=== PATIENT | male | born 1960 | race Caucasian/White ===

== ENCOUNTER 2022-08-07 13:15 | Inpatient (IN) | payer MEDICAID ==
[~2022-08-07] VITALS: Ht 182.9 cm; Wt 90.9 kg
[2022-08-07] MEDS ORDERED: acetaminophen 325mg tablet PO ONE (13:40)
[2022-08-07] MEDS ORDERED: ketorolac trometh. 30mg/ml inj. IV ONE (15:10)
[2022-08-07] MEDS ORDERED: ondansetron/PF 4mg/2ml inj IV ONE (15:10)
[2022-08-07] MEDS ORDERED: HYDROmorphone 1 mg/ml syringe IV ONE (15:10)
[2022-08-07 15:49] LABS: BASOPHILS % (AUTO) 0.2 % (0-1); EOSINOPHILS % (AUTO) 0 % (0-6); HEMATOCRIT 47.7 % (42.0-52.0); LYMPHOCYTES # (AUTO) 0.3 X10'3 (1.1-4.8); LYMPHOCYTES % (AUTO) 1.6 % (21-51); MEAN CORPUSCULAR HEMOGLOBIN 30.2 PG (27.0-31.0); MEAN CORPUSCULAR HGB CONC 33.6 g/dL (33.0-36.5); MEAN PLATELET VOLUME 7.4 FL (7.4-10.4); MONOCYTES # (AUTO) 0.9 X10'3 (0-0.9); MONOCYTES % (AUTO) 5.3 % (2-12); NEUTROPHILS # (AUTO) 16.2 X10'3 (1.8-7.7); NEUTROPHILS % (AUTO) 92.9 % (42-75); PLATELET COUNT 224 X10'3 (140-440); RED CELL DISTRIBUTION WIDTH 13.2 % (11.5-14.5); WHITE BLOOD COUNT 17.4 X10'3 (4.5-11.0)
[2022-08-07 16:05] LABS: ALANINE AMINOTRANSFERASE 20 U/L (12-78); ALBUMIN 3.8 G/DL (3.4-5.0); ALKALINE PHOSPHATASE 86 IU/L (46-116); ANION GAP 12 (8-16); ASPARTATE AMINO TRANSFERASE 24 U/L (10-37); BILIRUBIN,TOTAL 1.5 MG/DL (0.1-1.0); BLOOD UREA NITROGEN 19 MG/DL (7-18); BUN/CREATININE RATIO 11.7 (10.0-20.0); CALCIUM 8.9 MG/DL (8.5-10.1); CHLORIDE 96 MMOL/L (99-107); CREATININE 1.62 MG/DL (0.60-1.10); GLUCOSE 145 MG/DL (70-104); LIPASE < 50 U/L (73-393); POTASSIUM 4.3 MMOL/L (3.5-5.1); SODIUM 131 MMOL/L (135-145); TOTAL CARBON DIOXIDE 23.1 MMOL/L (24-32); TOTAL PROTEIN 7.6 G/DL (6.4-8.2); eGFR 44 ML/MIN
--- NOTE | 2022-08-07 16:22 | NUR ---
Received call from diagnostics, acute appendicitis noted. JOSE and notified.
[2022-08-07] MEDS ORDERED: piperacillin/tazo 3.375gm/50ml 50 ML IV ONE (16:40)
[2022-08-07 16:48] LABS: PLATELET ESTIMATE NORMAL; TOTAL CELLS COUNTED 100
[2022-08-07] MEDS ORDERED: potassium Cl 20 mEq SR tablet PO PRN ×2 (17:20)
[2022-08-07] MEDS ORDERED: ondansetron/PF 4mg/2ml inj IV PRN (17:20)
[2022-08-07] MEDS ORDERED: magnesium 4gm in 100ml NS 100 ML IV PRN (17:20)
[2022-08-07] MEDS ORDERED: magnesium Cl slow-release 64mg tablet PO PRN (17:20)
[2022-08-07] MEDS ORDERED: potassium Cl 40MEQ/1/2NS 520ml 520 ML IV PRN (17:20)
[2022-08-07] MEDS ORDERED: morphine 2 MG/ML inj. syringe IV PRN (17:20)
[2022-08-07] MEDS ORDERED: magnesium 2GM in 50ml NS 50 ML IV PRN (17:20)
[2022-08-07] MEDS ORDERED: acetaminophen 325mg tablet PO PRN (17:20)
[2022-08-07 17:54] LABS: CLARITY,URINE SLIGHTLY CLOUDY (Clear); COLOR,URINE YELLOW (Yellow); GLUCOSE, URINE NEGATIVE (Neg); KETONES,URINE 15 mg/dl (Neg); LEUKOCYTE ESTERASE ,URINE NEGATIVE (Neg); NITRITES, URINE NEGATIVE (Neg); OCCULT BLOOD,URINE NEGATIVE (Neg); PH,URINE 6.5 (4.8-8.0); PROTEIN,URINE NEGATIVE (Neg); UROBILINOGEN,URINE 0.2 E.U/dL (0.2-1.0)
[2022-08-07 17:59] LABS: UA COLLECTION TYPE CLN CATCH MIDSTREAM
[2022-08-07] MEDS: normal saline 1000ml 1,000 ML IV SCH (18:06)
[2022-08-07 18:14] LABS: HYALINE CASTS 0-3 /LPF (NEGATIVE); MUCUS STRANDS MANY /LPF (Neg); SQUAMOUS EPITHELIAL CELL,UR FEW /LPF (FEW)
[2022-08-07 18:15] LABS: BACTERIA,URINE FEW /HPF (Neg); RBC,URINE 0-2 /HPF (0-2); STARCH,URINE FEW /HPF (NEGATIVE); WBC,URINE 0-4 /HPF (0-4)
[2022-08-07] MEDS: enoxaparin 40mg/0.4ml syringe SQ SCH (19:25)
[2022-08-07] MEDS: morphine 2 MG/ML inj. syringe IV PRN (20:46)
[2022-08-08] VITALS (16 sets, daily range): BP systolic 133–165; BP diastolic 62–92
[2022-08-08] MEDS: piperacillin/tazo 3.375gm/50ml 50 ML IV SCH ×4 (00:25→23:39)
[2022-08-08] MEDS: morphine 2 MG/ML inj. syringe IV PRN ×4 (01:05→16:30)
[2022-08-08] MEDS ORDERED: OXYB5TAB16 PO (02:48)
[2022-08-08] MEDS ORDERED: HYDR-3927 PO (02:48)
[2022-08-08] MEDS ORDERED: NORT10CA81 PO (02:48)
[2022-08-08] MEDS ORDERED: TERA5CAP4 PO (02:48)
[2022-08-08] MEDS ORDERED: BUSP15TA3 PO (02:48)
[2022-08-08] MEDS: normal saline 1000ml 1,000 ML IV SCH ×3 (05:52→23:20)
--- NOTE | 2022-08-08 06:46 | NUR ---
EKG 3762
[2022-08-08] MEDS ORDERED: BUPIVAcaine/PF 2.5 mg/ml (0.25%) 30ml vial ONE (06:54)
[2022-08-08] MEDS ORDERED: fentaNYL /PF 50mcg/ml 5ml ampule ONE (08:12)
[2022-08-08] MEDS ORDERED: midazolam 1 mg/ML 2ml injection ONE (08:12)
[2022-08-08] MEDS ORDERED: esmolol 10mg/ml inj IV ONE (08:15)
[2022-08-08] MEDS ORDERED: neostigmine methylsulfate 1 MG/ML 10ml vial ONE (08:15)
[2022-08-08] MEDS ORDERED: sevoflurane 250ml liquid IH ONE (08:15)
[2022-08-08] MEDS ORDERED: glycopyrrolate 0.2mg/ml inj ONE (08:15)
[2022-08-08] MEDS ORDERED: ondansetron/PF 4mg/2ml inj IV PRN (08:20)
[2022-08-08] MEDS ORDERED: meperidine/PF 25mg/ml syringe IV PRN ×3 (08:20)
[2022-08-08] MEDS ORDERED: proCHLORperazine 10 MG/2 ml inj IV PRN (08:20)
[2022-08-08] MEDS ORDERED: morphine 2 MG/ML inj. syringe IV PRN (08:20)
[2022-08-08] MEDS ORDERED: morphine 4 MG/ML inj SYRINge IV PRN (08:20)
[2022-08-08] MEDS ORDERED: ringers solution, lacted 1,000 ML IV SCH (08:20)
[2022-08-08] MEDS ORDERED: dexamethasone sod phosphate 4mg/ml inj. ONE (09:36)
[2022-08-08] MEDS ORDERED: LIDOcaine 2% (20mg/ml) 5ml vial ONE (09:36)
[2022-08-08] MEDS ORDERED: rocuronium 10mg/ml inj IV ONE (09:36)
[2022-08-08] MEDS ORDERED: ondansetron/PF 4mg/2ml inj ONE (09:36)
[2022-08-08] MEDS ORDERED: propofol inj 20 ML IV ONE (09:36)
[2022-08-08] MEDS ORDERED: naloxone 0.4 mg/ml inj IV PRN (09:50)
[2022-08-08] MEDS ORDERED: sugammadex 200mg/2ml injection IV ONE (09:52)
[2022-08-08] MEDS ORDERED: meperidine/PF 25mg/ml syringe ONE (09:53)
--- NOTE | 2022-08-08 09:55 | NUR ---
Received from OR via bed, accompanied by Anesthesiologist ritu and report given by Anesthesiolgist. pt drowsy, oxygenating well on 10 lpm o2 via ,ask, no resp distress noted. no c/o nausea, pain reported at 5/10 level in incision/abd area. 3 abd lap sites with bandaiges, 1 pablo to r upper abd. 380 ml of serosanguinous output, reported to surgeon. scds on, vss.
[2022-08-08] MEDS: HYDROcodone/acetaminophen 10/325mg tab PO PRN ×3 (10:46→21:30)
--- NOTE | 2022-08-08 14:49 | NUR ---
PAGER ID: [phone] MESSAGE: Meliton Christianson [id number] Pt. concerned about voiding medications. Can you please adress med req. THank you [phone]
--- NOTE | 2022-08-08 16:58 | NUR ---
PAGER ID: [phone] MESSAGE: Sammy Coelho [id number] Pt. getting upset that his med req hasnt been addressed. Requesting to speak to you about his oxybutinin and terazosyn. 2nd page. Jenny [phone]
[2022-08-08] MEDS: oxybutynin 5mg tablet PO SCH (19:35)
[2022-08-08] MEDS: enoxaparin 40mg/0.4ml syringe SQ SCH (19:35)
[2022-08-08] MEDS: busPIRone 15mg tablet PO SCH (19:35)
[2022-08-08] MEDS: terazosin 5mg capsule PO SCH (20:51)
[2022-08-08] MEDS: nortriptyline 10mg capsule PO SCH (20:51)
[2022-08-08] MEDS: hydrOXYzine 25 MG tablet PO SCH (20:52)
[2022-08-09] MEDS: HYDROcodone/acetaminophen 10/325mg tab PO PRN ×2 (01:24→07:05)
[2022-08-09 02:00] VITALS: BP 108/74
[2022-08-09 05:00] VITALS: BP 120/73
--- NOTE | 2022-08-09 06:40 | NUR ---
Patient in room ORTHO 4009. I have received report from JORGE Ramsey and had the opportunity to ask questions and assume patient care.
[2022-08-09 06:49] LABS: BASOPHILS % (AUTO) 0 % (0-1); EOSINOPHILS % (AUTO) 0 % (0-6); HEMATOCRIT 40.8 % (42.0-52.0); HEMOGLOBIN 13.7 g/dl (14.0-17.9); LYMPHOCYTES # (AUTO) 0.4 X10'3 (1.1-4.8); MEAN CORPUSCULAR HEMOGLOBIN 30.2 PG (27.0-31.0); MEAN CORPUSCULAR HGB CONC 33.6 g/dL (33.0-36.5); MEAN CORPUSCULAR VOLUME 89.8 FL (78-98); MEAN PLATELET VOLUME 7.7 FL (7.4-10.4); MONOCYTES # (AUTO) 0.7 X10'3 (0-0.9); NEUTROPHILS # (AUTO) 12.1 X10'3 (1.8-7.7); PLATELET COUNT 165 X10'3 (140-440); RED BLOOD COUNT 4.54 X10'6 (4.70-6.10); RED CELL DISTRIBUTION WIDTH 13.6 % (11.5-14.5); WHITE BLOOD COUNT 13.2 X10'3 (4.5-11.0)
[2022-08-09] MEDS: normal saline 1000ml 1,000 ML IV SCH ×2 (09:20→20:08)
[2022-08-09 09:39] LABS: ALANINE AMINOTRANSFERASE 14 U/L (12-78); ALBUMIN 2.7 G/DL (3.4-5.0); ALBUMIN/GLOBULIN RATIO 0.7 (1.1-1.5); ALKALINE PHOSPHATASE 73 IU/L (46-116); ANION GAP 5 (8-16); ASPARTATE AMINO TRANSFERASE 16 U/L (10-37); BILIRUBIN,TOTAL 0.7 MG/DL (0.1-1.0); BLOOD UREA NITROGEN 18 MG/DL (7-18); BUN/CREATININE RATIO 13.7 (10.0-20.0); CALCIUM 8.2 MG/DL (8.5-10.1); CHLORIDE 102 MMOL/L (99-107); CREATININE 1.31 MG/DL (0.60-1.10); GLUCOSE 109 MG/DL (70-104); SODIUM 136 MMOL/L (135-145); TOTAL CARBON DIOXIDE 28.6 MMOL/L (24-32); TOTAL PROTEIN 6.5 G/DL (6.4-8.2); eGFR 56 ML/MIN
[2022-08-09] MEDS: oxybutynin 5mg tablet PO SCH ×2 (09:58→19:42)
[2022-08-09] MEDS: busPIRone 15mg tablet PO SCH ×2 (09:58→19:42)
[2022-08-09] MEDS: piperacillin/tazo 3.375gm/50ml 50 ML IV SCH ×3 (09:58→23:47)
[2022-08-09 10:00] VITALS: BP 124/83
[2022-08-09] MEDS: ondansetron/PF 4mg/2ml inj IV PRN (16:35)
[2022-08-09] MEDS: HYDROmorphone inj. 0.5 MG/0.5 ML DISP.SYRIN IV PRN ×2 (17:08→21:09)
[2022-08-09 18:00] VITALS: BP 137/93
--- NOTE | 2022-08-09 18:10 | NUR ---
Problems reprioritized. Patient report given, questions answered & plan of care reviewed with JORGE Ramsey.
[2022-08-09] MEDS: enoxaparin 40mg/0.4ml syringe SQ SCH (19:42)
[2022-08-09] MEDS: terazosin 5mg capsule PO SCH (21:08)
[2022-08-09] MEDS: nortriptyline 10mg capsule PO SCH (21:08)
[2022-08-09] MEDS: hydrOXYzine 25 MG tablet PO SCH (21:15)
[2022-08-09 22:00] VITALS: BP 117/65
--- NOTE | 2022-08-10 | NUR ---
Pt walked one lap earlier during shift. Pt is not wanting to walk, abdomen is distended.
[2022-08-10] MEDS: ondansetron/PF 4mg/2ml inj IV PRN ×4 (00:38→17:33)
[2022-08-10 05:00] VITALS: BP 147/96
[2022-08-10] MEDS: normal saline 1000ml 1,000 ML IV SCH ×3 (05:29→16:29)
[2022-08-10 05:45] LABS: ALANINE AMINOTRANSFERASE 16 U/L (12-78); ALBUMIN 2.8 G/DL (3.4-5.0); ALBUMIN/GLOBULIN RATIO 0.7 (1.1-1.5); ALKALINE PHOSPHATASE 73 IU/L (46-116); ANION GAP 5 (8-16); ASPARTATE AMINO TRANSFERASE 15 U/L (10-37); BILIRUBIN,TOTAL 0.7 MG/DL (0.1-1.0); BLOOD UREA NITROGEN 16 MG/DL (7-18); BUN/CREATININE RATIO 12.5 (10.0-20.0); CALCIUM 8.7 MG/DL (8.5-10.1); CHLORIDE 100 MMOL/L (99-107); CREATININE 1.28 MG/DL (0.60-1.10); GLUCOSE 124 MG/DL (70-104); POTASSIUM 3.8 MMOL/L (3.5-5.1); SODIUM 134 MMOL/L (135-145); TOTAL CARBON DIOXIDE 29.5 MMOL/L (24-32); TOTAL PROTEIN 7.1 G/DL (6.4-8.2); eGFR 58 ML/MIN
[2022-08-10 06:02] LABS: BASOPHILS % (AUTO) 0.2 % (0-1); EOSINOPHILS % (AUTO) 0.1 % (0-6); HEMATOCRIT 42.4 % (42.0-52.0); HEMOGLOBIN 14.3 g/dl (14.0-17.9); LYMPHOCYTES # (AUTO) 0.3 X10'3 (1.1-4.8); LYMPHOCYTES % (AUTO) 3.1 % (21-51); MEAN CORPUSCULAR HEMOGLOBIN 30.8 PG (27.0-31.0); MEAN CORPUSCULAR HGB CONC 33.7 g/dL (33.0-36.5); MEAN CORPUSCULAR VOLUME 91.3 FL (78-98); MONOCYTES # (AUTO) 0.7 X10'3 (0-0.9); MONOCYTES % (AUTO) 6.1 % (2-12); NEUTROPHILS # (AUTO) 10.1 X10'3 (1.8-7.7); NEUTROPHILS % (AUTO) 90.5 % (42-75); PLATELET COUNT 226 X10'3 (140-440); RED BLOOD COUNT 4.64 X10'6 (4.70-6.10); RED CELL DISTRIBUTION WIDTH 13.4 % (11.5-14.5); WHITE BLOOD COUNT 11.1 X10'3 (4.5-11.0)
--- NOTE | 2022-08-10 06:30 | NUR ---
Patient in room ORTHO 4009. I have received report from JORGE Ramsey and had the opportunity to ask questions and assume patient care.
[2022-08-10] MEDS: HYDROmorphone inj. 0.5 MG/0.5 ML DISP.SYRIN IV PRN ×4 (06:59→22:04)
[2022-08-10] MEDS: proCHLORperazine 10 MG/2 ml inj IV PRN ×2 (06:59→20:52)
[2022-08-10] MEDS: oxybutynin 5mg tablet PO SCH ×2 (09:47→22:04)
[2022-08-10] MEDS: busPIRone 15mg tablet PO SCH ×2 (09:47→22:04)
[2022-08-10] MEDS: piperacillin/tazo 3.375gm/50ml 50 ML IV SCH ×2 (09:47→16:23)
[2022-08-10 10:00] VITALS: BP 148/96
[2022-08-10] MEDS: HYDROcodone/acetaminophen 10/325mg tab PO PRN (11:11)
[2022-08-10 17:00] VITALS: BP 134/86
[2022-08-10 22:00] VITALS: BP 148/87
[2022-08-10] MEDS: metoclopramide 5 mg/ml inj IV SCH (22:03)
[2022-08-10] MEDS: terazosin 5mg capsule PO SCH (22:03)
[2022-08-10] MEDS: hydrOXYzine 25 MG tablet PO SCH (22:04)
[2022-08-10] MEDS: nortriptyline 10mg capsule PO SCH (22:04)
[2022-08-10] MEDS: enoxaparin 40mg/0.4ml syringe SQ SCH (22:04)
[2022-08-11] MEDS: piperacillin/tazo 3.375gm/50ml 50 ML IV SCH ×4 (00:20→23:31)
[2022-08-11] MEDS: normal saline 1000ml 1,000 ML IV SCH ×3 (02:09→21:19)
[2022-08-11] MEDS: HYDROmorphone inj. 0.5 MG/0.5 ML DISP.SYRIN IV PRN ×5 (02:10→18:55)
[2022-08-11] MEDS: metoclopramide 5 mg/ml inj IV SCH ×4 (02:10→20:38)
[2022-08-11] MEDS: Melatonin 3mg tablet PO SCH ×2 (02:46→20:39)
[2022-08-11 05:00] LABS: BASOPHILS % (AUTO) 0.2 % (0-1); EOSINOPHILS % (AUTO) 0.1 % (0-6); HEMOGLOBIN 13.2 g/dl (14.0-17.9); LYMPHOCYTES # (AUTO) 0.4 X10'3 (1.1-4.8); LYMPHOCYTES % (AUTO) 4.7 % (21-51); MEAN CORPUSCULAR HEMOGLOBIN 30.7 PG (27.0-31.0); MEAN CORPUSCULAR HGB CONC 33.7 g/dL (33.0-36.5); MEAN CORPUSCULAR VOLUME 90.9 FL (78-98); MEAN PLATELET VOLUME 7.4 FL (7.4-10.4); MONOCYTES # (AUTO) 0.7 X10'3 (0-0.9); MONOCYTES % (AUTO) 8.2 % (2-12); NEUTROPHILS # (AUTO) 7.2 X10'3 (1.8-7.7); NEUTROPHILS % (AUTO) 86.8 % (42-75); PLATELET COUNT 182 X10'3 (140-440); RED BLOOD COUNT 4.29 X10'6 (4.70-6.10); RED CELL DISTRIBUTION WIDTH 13.3 % (11.5-14.5); WHITE BLOOD COUNT 8.3 X10'3 (4.5-11.0)
[2022-08-11 05:27] LABS: ALANINE AMINOTRANSFERASE 17 U/L (12-78); ALBUMIN 2.5 G/DL (3.4-5.0); ALBUMIN/GLOBULIN RATIO 0.7 (1.1-1.5); ALKALINE PHOSPHATASE 64 IU/L (46-116); ANION GAP 8 (8-16); ASPARTATE AMINO TRANSFERASE 17 U/L (10-37); BILIRUBIN,TOTAL 0.8 MG/DL (0.1-1.0); BLOOD UREA NITROGEN 15 MG/DL (7-18); BUN/CREATININE RATIO 13.6 (10.0-20.0); CALCIUM 8.2 MG/DL (8.5-10.1); CHLORIDE 100 MMOL/L (99-107); GLUCOSE 119 MG/DL (70-104); POTASSIUM 3.6 MMOL/L (3.5-5.1); SODIUM 134 MMOL/L (135-145); TOTAL CARBON DIOXIDE 25.8 MMOL/L (24-32); TOTAL PROTEIN 6.3 G/DL (6.4-8.2); eGFR 69 ML/MIN
[2022-08-11] MEDS: ondansetron/PF 4mg/2ml inj IV PRN ×3 (05:35→18:54)
[2022-08-11 06:00] VITALS: BP 154/90
--- NOTE | 2022-08-11 06:20 | NUR ---
Problems reprioritized. Patient report given, questions answered & plan of care reviewed with JORGE Ascencio.
[2022-08-11] MEDS: oxybutynin 5mg tablet PO SCH ×2 (07:02→20:38)
[2022-08-11] MEDS: busPIRone 15mg tablet PO SCH ×2 (07:02→20:38)
[2022-08-11] MEDS: HYDROcodone/acetaminophen 10/325mg tab PO PRN (07:11)
[2022-08-11] MEDS: proCHLORperazine 10 MG/2 ml inj IV PRN ×3 (08:53→23:30)
--- NOTE | 2022-08-11 09:47 | NUR ---
pt ambulated around nurses unit x2. c/o nausea. not passing gas at this time. compazine given per md order
[2022-08-11 10:00] VITALS: BP 151/87
--- NOTE | 2022-08-11 14:26 | NUR ---
patient is now passing gas!
--- NOTE | 2022-08-11 17:04 | NUR ---
pt has ambulated around nursing unit 3 times this am shift. no BM this shift, voiding in the toilet. TERRENCE output for this shift is 135ml. pt continues to c/o nausea. At 1415 pt began passing gas, diet advanced to full liquid. Will continue to monitor patient
[2022-08-11 18:00] VITALS: BP 145/77
--- NOTE | 2022-08-11 18:10 | NUR ---
Patient in room ORTHO 4009. I have received report from JORGE Ascencio and had the opportunity to ask questions and assume patient care. Patient resting on bed, reports nausea and pain. I will check MAR for med orders.
[2022-08-11] MEDS: nortriptyline 10mg capsule PO SCH (20:38)
[2022-08-11] MEDS: terazosin 5mg capsule PO SCH (20:38)
[2022-08-11] MEDS: enoxaparin 40mg/0.4ml syringe SQ SCH (20:39)
[2022-08-11] MEDS: hydrOXYzine 25 MG tablet PO SCH (20:39)
[2022-08-11 22:00] VITALS: BP 144/85
[2022-08-12] MEDS: metoclopramide 5 mg/ml inj IV SCH ×2 (02:00→10:46)
[2022-08-12] MEDS: HYDROcodone/acetaminophen 10/325mg tab PO PRN ×2 (03:24→10:16)
[2022-08-12 06:00] VITALS: BP 150/77
--- NOTE | 2022-08-12 06:14 | NUR ---
Problems reprioritized. Patient report given, questions answered & plan of care reviewed with JORGE Tavera.
[2022-08-12 06:20] LABS: BASOPHILS % (AUTO) 0.2 % (0-1); EOSINOPHILS % (AUTO) 0.2 % (0-6); HEMATOCRIT 39.4 % (42.0-52.0); HEMOGLOBIN 13.4 g/dl (14.0-17.9); LYMPHOCYTES # (AUTO) 0.4 X10'3 (1.1-4.8); LYMPHOCYTES % (AUTO) 5.1 % (21-51); MEAN CORPUSCULAR HEMOGLOBIN 30.4 PG (27.0-31.0); MEAN CORPUSCULAR HGB CONC 33.9 g/dL (33.0-36.5); MEAN CORPUSCULAR VOLUME 89.7 FL (78-98); MEAN PLATELET VOLUME 7.4 FL (7.4-10.4); MONOCYTES # (AUTO) 0.8 X10'3 (0-0.9); MONOCYTES % (AUTO) 9.4 % (2-12); NEUTROPHILS # (AUTO) 7.4 X10'3 (1.8-7.7); NEUTROPHILS % (AUTO) 85.1 % (42-75); PLATELET COUNT 239 X10'3 (140-440); RED CELL DISTRIBUTION WIDTH 13.3 % (11.5-14.5); WHITE BLOOD COUNT 8.7 X10'3 (4.5-11.0)
[2022-08-12 06:36] LABS: ALANINE AMINOTRANSFERASE 18 U/L (12-78); ALBUMIN 2.4 G/DL (3.4-5.0); ALBUMIN/GLOBULIN RATIO 0.6 (1.1-1.5); ALKALINE PHOSPHATASE 61 IU/L (46-116); ANION GAP 12 (8-16); ASPARTATE AMINO TRANSFERASE 25 U/L (10-37); BILIRUBIN,TOTAL 0.8 MG/DL (0.1-1.0); BLOOD UREA NITROGEN 14 MG/DL (7-18); BUN/CREATININE RATIO 13.3 (10.0-20.0); CALCIUM 8.6 MG/DL (8.5-10.1); CHLORIDE 99 MMOL/L (99-107); CREATININE 1.05 MG/DL (0.60-1.10); GLUCOSE 110 MG/DL (70-104); POTASSIUM 3.5 MMOL/L (3.5-5.1); SODIUM 138 MMOL/L (135-145); TOTAL CARBON DIOXIDE 27.2 MMOL/L (24-32); TOTAL PROTEIN 6.2 G/DL (6.4-8.2); eGFR 72 ML/MIN
[2022-08-12] MEDS: oxybutynin 5mg tablet PO SCH (08:00)
[2022-08-12] MEDS: busPIRone 15mg tablet PO SCH (08:00)
--- NOTE | 2022-08-12 09:31 | NUR ---
Initial: Pt admit for acute appendicitis, currently POD #4 s/p laparoscopic appendectomy. Per EMR pt passed gas 08/11 and diet was advanced to full liquids to begin at dinner 08/11, previously on a clear liquid diet. Pt initially with ~25% PO intake however documented with 0% PO intake since lunch 08/10. Pending documentation of PO intake for today. Recommend advancing to regular diet as medically indicated and implementing Ensure Enlive TID IF pt with poor PO intake and/or expected prolonged full liquid diet. LBM 08/11 x3 per I&O. Will continue to follow closely. Recommendations: 1) Advance to regular diet as medically indicated 2) Monitor need for ONS; consider Ensure Enlive TID if pt with poor PO intake and/or expected prolonged full liquid diet 3) Bowel care per physician 4) Scaled weight this admit; subsequent weekly scaled weights Addendum: 08/12/22 at [address] Amended: Links added.
[2022-08-12 10:00] VITALS: BP 153/90
[2022-08-12] MEDS: piperacillin/tazo 3.375gm/50ml 50 ML IV SCH (10:47)
[2022-08-12] MEDS: ondansetron/PF 4mg/2ml inj IV PRN (14:21)
[2022-08-12] MEDS ORDERED: AMOX-117 PO (14:24)
[2022-08-12] MEDS ORDERED: HYDR-3973 PO (14:24)
[2022-08-12] MEDS ORDERED: ONDA4TAB12 PO (16:18)
== END 2022-08-12 18:03 | disposition home or self-care (01) | DRG 233 ==
LOC: ER 13:16 → ED HOLD 17:24 → ORTHO 4S 08-08 11:15
PROVIDERS: ADMIT Internal Medicine; ATTEND Internal Medicine
PROC: 8E0W0CZ Robotic Assisted Procedure of Trunk Region, Open Approach (ICD-10-PCS; 2022-08-08)
PROC: 0DTJ0ZZ Resection of Appendix, Open Approach (ICD-10-PCS; principal; 2022-08-08 08:15)
DX: K35.32 Acute appendicitis with perforation, localized peritonitis, and gangrene, without abscess (principal); N17.9 Acute kidney failure, unspecified; K56.600 Partial intestinal obstruction, unspecified as to cause; F32.A Depression, unspecified; K44.9 Diaphragmatic hernia without obstruction or gangrene; Z85.038 Personal history of other malignant neoplasm of large intestine; Z87.442 Personal history of urinary calculi
CPT/HCPCS: 36415; 74176; 80053; 81001; 83605; 83690; 85007; 85025; 87040; 87081; 99285; A4215; A4314; A4615; A4618; A6212; A6402; G0378; J0780; J1100; J1170; J1650; J1885; J2175; J2250; J2270; J2405; J2543; J2704; J2710; J2765; J3010; J3490; J7030; J7120; Q0177

== ENCOUNTER 2023-04-15 11:35 | Emergency (ER) | payer MEDICAID ==
[~2023-04-15] VITALS: Ht 175.3 cm; Wt 82.6 kg
[~2023-04-15 11:35] MED LIST: BUSP15TA3 PO; HYDR-3927 PO; NORT10CA81 PO; ONDA4TAB12 PO; OXYB5TAB17 PO; TERA5CAP4 PO
[2023-04-15 13:40] LABS: BASOPHILS % (AUTO) 0.4 % (0-1); EOSINOPHILS % (AUTO) 0.7 % (0-6); HEMATOCRIT 43.9 % (42.0-52.0); HEMOGLOBIN 14.9 g/dl (14.0-17.9); LYMPHOCYTES # (AUTO) 0.8 X10'3 (1.1-4.8); MEAN CORPUSCULAR HEMOGLOBIN 30.5 PG (27.0-31.0); MEAN CORPUSCULAR VOLUME 89.7 FL (78-98); MEAN PLATELET VOLUME 7.4 FL (7.4-10.4); MONOCYTES # (AUTO) 0.4 X10'3 (0-0.9); NEUTROPHILS # (AUTO) 4.3 X10'3 (1.8-7.7); NEUTROPHILS % (AUTO) 77.9 % (42-75); PLATELET COUNT 231 X10'3 (140-440); RED CELL DISTRIBUTION WIDTH 13.5 % (11.5-14.5); WHITE BLOOD COUNT 5.5 X10'3 (4.5-11.0)
[2023-04-15 13:55] LABS: ALANINE AMINOTRANSFERASE 20 U/L (12-78); ALBUMIN 3.9 G/DL (3.4-5.0); ALKALINE PHOSPHATASE 69 IU/L (46-116); ANION GAP 7 (8-16); ASPARTATE AMINO TRANSFERASE 20 U/L (10-37); BILIRUBIN,TOTAL 0.7 MG/DL (0.1-1.0); BLOOD UREA NITROGEN 14 MG/DL (7-18); BUN/CREATININE RATIO 11.7 (10.0-20.0); CALCIUM 9.3 MG/DL (8.5-10.1); CHLORIDE 103 MMOL/L (99-107); GLUCOSE 104 MG/DL (70-104); LIPASE 13 U/L (16-77); POTASSIUM 4.3 MMOL/L (3.5-5.1); SODIUM 139 MMOL/L (135-145); TOTAL CARBON DIOXIDE 28.8 MMOL/L (24-32); TOTAL PROTEIN 7.8 G/DL (6.4-8.2); eCRCL 72 ML/MIN; eGFR 62 ML/MIN
[2023-04-15] MEDS ORDERED: MAG355OR18 PO (14:30)
[2023-04-15] MEDS ORDERED: DICY20TA17 PO (14:30)
[2023-04-15] MEDS ORDERED: LIDO15SO3 PO (14:33)
[2023-04-15 15:13] VITALS: BP 124/84; PULSE 67; RESP 18; TEMP 97.2; O2SAT 98
== END 2023-04-15 15:16 | disposition home or self-care (01) ==
LOC: ER 11:36
DX: K21.9 Gastro-esophageal reflux disease without esophagitis (principal); Z87.442 Personal history of urinary calculi; Z79.899 Other long term (current) drug therapy
CPT/HCPCS: 36415; 76700; 80053; 83690; 85025; 99284

== ENCOUNTER 2023-07-28 11:08 | Emergency (ER) | payer MEDICAID ==
[~2023-07-28] VITALS: Ht 183.5 cm; Wt 84.5 kg
[~2023-07-28 11:08] MED LIST changes: +DICY20TA17 PO; +LIDO15SO9 PO; -OXYB5TAB17 PO; +OXYB5TAB21 PO
[2023-07-28 13:02] VITALS: BP 105/80; PULSE 71; TEMP 98; O2SAT 97
[2023-07-28 13:30] LABS: BILIRUBIN,URINE NEGATIVE (Neg); CLARITY,URINE SLIGHTLY CLOUDY (Clear); COLOR,URINE YELLOW (Yellow); GLUCOSE, URINE NEGATIVE (Neg); KETONES,URINE NEGATIVE (Neg); LEUKOCYTE ESTERASE ,URINE NEGATIVE (Neg); NITRITES, URINE NEGATIVE (Neg); OCCULT BLOOD,URINE NEGATIVE (Neg); PROTEIN,URINE NEGATIVE (Neg); UROBILINOGEN,URINE 0.2 E.U/dL (0.2-1.0)
[2023-07-28 13:35] LABS: MUCUS STRANDS MANY /LPF (Neg); UA COLLECTION TYPE CLN CATCH MIDSTREAM
[2023-07-28 13:36] LABS: CAL OXALATE CRYSTALS 3+ /HPF (NEGATIVE); RBC,URINE 0-2 /HPF (0-2)
[2023-07-28 13:37] LABS: BACTERIA,URINE NONE SEEN /HPF (Neg); SQUAMOUS EPITHELIAL CELL,UR FEW /LPF (FEW); WBC,URINE 0-4 /HPF (0-4)
[2023-07-28 15:12] LABS: BASOPHILS % (AUTO) 0.5 % (0-1); EOSINOPHILS # (AUTO) 0.1 X10'3 (0-0.9); EOSINOPHILS % (AUTO) 1.2 % (0-6); HEMOGLOBIN 15.1 g/dl (14.0-17.9); LYMPHOCYTES # (AUTO) 0.9 X10'3 (1.1-4.8); LYMPHOCYTES % (AUTO) 12.9 % (21-51); MEAN CORPUSCULAR HEMOGLOBIN 30.2 PG (27.0-31.0); MEAN CORPUSCULAR HGB CONC 33.5 g/dL (33.0-36.5); MEAN CORPUSCULAR VOLUME 90.4 FL (78-98); MEAN PLATELET VOLUME 7.5 FL (7.4-10.4); MONOCYTES # (AUTO) 0.4 X10'3 (0-0.9); MONOCYTES % (AUTO) 5.5 % (2-12); NEUTROPHILS # (AUTO) 5.3 X10'3 (1.8-7.7); NEUTROPHILS % (AUTO) 79.9 % (42-75); PLATELET COUNT 209 X10'3 (140-440); RED BLOOD COUNT 4.98 X10'6 (4.70-6.10); RED CELL DISTRIBUTION WIDTH 13.4 % (11.5-14.5); WHITE BLOOD COUNT 6.6 X10'3 (4.5-11.0)
[2023-07-28 15:24] VITALS: RESP 16
[2023-07-28] MEDS: oxyCODONE/APAP 5-325mg tablet PO ONE (15:24)
[2023-07-28] MEDS: ketorolac tromethamine 15mg/ml inj. IM ONE (15:24)
[2023-07-28 15:36] LABS: ALANINE AMINOTRANSFERASE 19 U/L (12-78); ALBUMIN 3.8 G/DL (3.4-5.0); ALKALINE PHOSPHATASE 71 IU/L (46-116); ANION GAP 7 (8-16); ASPARTATE AMINO TRANSFERASE 20 U/L (10-37); BILIRUBIN,TOTAL 0.5 MG/DL (0.1-1.0); BLOOD UREA NITROGEN 18 MG/DL (7-18); BUN/CREATININE RATIO 15.5 (10.0-20.0); CALCIUM 8.5 MG/DL (8.5-10.1); CHLORIDE 103 MMOL/L (99-107); CREATININE 1.16 MG/DL (0.60-1.10); GLUCOSE 100 MG/DL (70-104); POTASSIUM 3.9 MMOL/L (3.5-5.1); SODIUM 137 MMOL/L (135-145); TOTAL PROTEIN 7.5 G/DL (6.4-8.2); eCRCL 75 ML/MIN; eGFR 64 ML/MIN
== END 2023-07-28 16:11 | disposition home or self-care (01) ==
LOC: ER 11:08
DX: N50.811 Right testicular pain (principal); Z79.899 Other long term (current) drug therapy; Z79.2 Long term (current) use of antibiotics
CPT/HCPCS: 36415; 76870; 80053; 81001; 85025; 93976; 96372; 99285; J1885